=== PATIENT | female | born 1985 | race Hispanic/Latino ===

== ENCOUNTER 2019-04-26 04:39 | Inpatient (IN) | payer OTHER ==
--- OUTSIDE RECORDS SUMMARY | 2019-04-26 04:41 | XMS REPORT ---
:1985 [facility] [address] [place] [address] Dr. Delgado[address] [place] [id number] Care Team Providers Name Role Phone Unavailable Unavailable Unavailable Problems This patient has no known problems. Allergies, Adverse Reactions, Alerts This patient has no known allergies or adverse reactions. Medications This patient has no known medications.
[2019-04-26] MEDS ORDERED: Ringers Lactate 1,000 ML IV PRN (04:52)
[2019-04-26] MEDS ORDERED: MEPERIDINE HCL 25 MG/0.5 ML IV PRN (04:52)
[2019-04-26] MEDS ORDERED: CARBOPROST TROME 250 MCG/ML IM PRN (04:52)
[2019-04-26] MEDS ORDERED: PROMETHAZINE 25 MG/ML VIAL IM PRN (04:52)
[2019-04-26] MEDS ORDERED: BUTORPHANOL 1 MG/ML INJ IV PRN (04:52)
[2019-04-26] MEDS ORDERED: OXYTOCIN/LR 20 UNIT/1,000 ML BAG IV SCH ×2 (05:00→07:00)
[2019-04-26] MEDS ORDERED: Ringers Lactate 1,000 ML IV SCH (05:00)
[2019-04-26 05:27] LABS: RPR Titer ND
[2019-04-26 05:31] LABS: Absolute Lymphocytes (CBC) 2.3 K/uL (0.7-4.9); Basophils % 0.7 % (0-1.3); Eosinophils % 0.9 % (0-4.4); Hematocrit 38.5 % (36.0-45.0); Lymphocytes % 15.4 % (15.3-44.8); MPV 9.1 fL (7.6-11.3); RBC Red Blood Cell Count 4.21 M/uL (3.86-4.86); Urine Appearance CLEAR; Urine Bilirubin NEGATIVE (NEG); Urine Blood 3+ (NEG); Urine Color YELLOW; Urine Glucose NEGATIVE (NEG); Urine Protein NEGATIVE (NEG); Urine pH 7.5 (5.0-7.0)
[2019-04-26] MEDS ORDERED: LIDOCAINE 1% 20 ML MDV ONE (05:34)
[2019-04-26 05:48] LABS: Urine Bacteria <20 /HPF (<20); Urine Culture Reflex Order REFLEXED; Urine RBC >50 /HPF (NONE SEEN)
[2019-04-26 05:57] VITALS: BMI 23.6
[2019-04-26] MEDS ORDERED: Oxycodone HCl/Acetaminophen 1 TAB TAB PO PRN ×2 (06:53)
[2019-04-26] MEDS ORDERED: METHYLERGONOVINE 0.2 MG TAB PO PRN (06:53)
[2019-04-26] MEDS ORDERED: ACETAMINOPHEN 500 MG TAB PO PRN (06:53)
[2019-04-26] MEDS ORDERED: DIPHENHYDRAMINE 25 MG TAB/CAP PO PRN (06:53)
[2019-04-26] MEDS ORDERED: DOCUSATE NA/SENNA CONC 1 TAB PO PRN (06:53)
[2019-04-26] MEDS ORDERED: BISACODYL 10 MG RECTAL SUPP RECT PRN (06:53)
--- NOTE | 2019-04-26 07:03 | PREOPHP ---
Date of Admission: 04/26/2019 A 34-year-old, 2, para 1, 39 weeks and 2 days, came in yesterday for contractions, is noted t o be 4 cm in the office, but did not wish to be induced. Came out to Labor and Delivery after the ex am in the office. Was again checked, noted to have minimal contractions, did not want to stay, and h ave labor augmentation or induction. Went home, came back this morning at 8 cm. She is now 8-1/2 to 9 cm, rupture of membranes on her own. Baby looks good, although patient has had 1 mg of Stadol and there was initially decreased variability and now is returning. She is Rh positive, immune to Rubel la. Negative beta strep screen. She has not made any progress in the last 20 to 30 minutes. We jenny l start light Pitocin to hasten the process, anticipate delivery relatively soon. STEVE/TAMI Voice ID: [id number]
--- NOTE | 2019-04-26 16:12 | OP ---
Surgeon: Gary Bradley MD This 34-year-old, 2, para 1, 39 weeks 2 days, came in, in active labor. Had been seen prior in the day, offered to stay, and have augmentation. At that time she was 4 cm, 80% effaced, but deci ded to go home. Her contractions were minimal at that point. Came back at 8 cm. Had light Pitocin augmentation. Went to complete. She was given 1 mg of Stadol and 25 mg Phenergan IM. Second stage of 10-15 minutes. Spontaneous vaginal delivery of a 6 pound 15 ounce male . Nuchal cord loose ly x1. Apgars 9 and 9. First degree laceration above the urethra, that was vascular, sutured with 2 -0 chromic running lock after local infiltration. A smaller first-degree laceration at the posterior fourchette, first-degree laceration sutured with 2-0 chromic after local infiltration. Rowdy aguirre of the placenta, which was inspected and noted to be intact and normal. Mild hypotonus, 0.2 mg of Methergine IM for hemostasis. Estimated blood loss 400 cc. The patient is Rh positive, immune t o Rubella. Negative beta strep screen. Tolerated all procedures well. Final Diagnoses: Term intrauterine 39 weeks 2 days, vaginal delivery, mild uterine hypoton us. Nuchal cord x1. STEVE/TAMI Voice ID: [id number] Report ID: [id number]
[2019-04-26 22:35] LABS: RPR (Rapid Plasma Reagin) NON-REACT (NON-REACT)
[2019-04-27] MEDS: IBUPROFEN 200 MG TAB PO PRN ×2 (00:15→11:10)
[2019-04-27 08:41] VITALS: BP 101/63; TEMP 97.9
--- NOTE | 2019-04-27 16:21 | DS ---
Date of Discharge: 04/27/2019 This 34-year-old, 2, para 1, followed antepartum without complications. Rh positive, immune to Rubella. Negative beta-strep screen. Came into our facility in active advanced labor, approximat kathryn 7 to 8 cm on admission, 39 weeks and 2 days. Subsequently, delivered spontaneously of a 6 pound 15 ounce male infant, Apgars 9 and 9. Small first-degree lacerations x2. One above the urethra and one at the posterior fourchette, local infiltration and 2-0 chromic running locked stitch. Schultze delivery of the placenta. Mild uterine hypertonus, 400 cc estimated blood loss, 0.2 mg of Methergine , as well as IV drip Pitocin and massage. Uterus contracted down well. , was afebrile, am bulating and voiding. Lochia is normal. Will be dismissed this morning, to report back to my office in 6 weeks for followup. To report any temperature elevation of 100 degrees or greater, severe pain , heavy bleeding, or any other type of abnormalities. Dismissed with [place] for analgesia. Although, she would like to take Motrin instead. She has been counselled about Tdap administration, has decli amelie her shots during the , but she can get shot now if she chooses. Final Diagnoses: Term intrauterine 39 weeks 2 days, vaginal delivery, mild uterine hyperto nus, nuchal cord x1 loosely, Tdap administration offered. STEVE/TAMI Voice ID: [id number] Report ID: [id number]
--- NOTE | 2019-04-28 02:58 | DS ---
Date of Discharge: 04/27/2019 This is a 34-year-old. DICTATION ENDS HERE STEVE/TAMI Voice ID: [id number] Report ID: [id number]
[2019-04-28 12:34] LABS: HBsAG Nonreactive (Nonreactive)
== END 2019-04-27 11:10 | disposition home or self-care (01) | DRG 807 ==
LOC: L&D 04:39 → 2ND-WC 04:40
PROVIDERS: ADMIT Specialist; ATTEND Specialist
PROC: 10E0XZZ Delivery of Products of Conception, External Approach (ICD-10-PCS; principal; 2019-04-26)
PROC: 0HQ9XZZ Repair Perineum Skin, External Approach (ICD-10-PCS; 2019-04-26)
DX: O69.81X0 Labor and delivery complicated by cord around neck, without compression, not applicable or unspecified (principal); Z37.0 Single live birth; O76 Abnormality in fetal heart rate and rhythm complicating labor and delivery; Z3A.39 39 weeks gestation of pregnancy; O70.0 First degree perineal laceration during delivery; O62.2 Other uterine inertia
CPT/HCPCS: 36415; 81001; 85025; 86592; 86901; 87086; 87088; 87340; 99218; J0595; J2550